=== PATIENT | female | born 1950 | race Caucasian/White ===

== ENCOUNTER 2019-03-22 08:43 | Day surgery (SDC) | payer MEDICARE, OTHER ==
[~2019-03-22] VITALS: Ht 160 cm; Wt 70.3 kg
[~2019-03-22 08:43] MED LIST: NS 1,000 ML IV ONE; PANT40TA3 PO
[2019-03-22] MEDS ORDERED: LIDOCAINE 2% INJ 100 MG/5 ML SDV (FOR ANES.) As Ordered ONE (09:03)
[2019-03-22] MEDS ORDERED: PROPOFOL 200 MG/20 ML VIAL As Ordered ONE (09:03)
[2019-03-22] MEDS ORDERED: PHENYLephrine HCL 500 MCG/5 ML (100MCG/ML) SYRINGE (J2370) As Ordered ONE (09:28)
--- NOTE | 2019-03-22 09:43 | ROOR ---
Patient Name: Kassi Garza Procedure Date: 03/22/2019 9:20 AM Date of : 1950 Age: 69 Room: [facility] Gender: Female Note Status: Finalized Procedure: Total Colonoscopy to Cecum + ileoscopy Indications: Colon cancer screening in patient at increased risk: Colorectal cancer in sister, Last colonoscopy: 2013 Providers: Aiden Mcdonnell MD Referring MD: Leticia Mike NP Requesting Provider: Medicines: Monitored Anesthesia Care Complications: No immediate complications. Procedure: Pre-Anesthesia Assessment: - The heart rate, respiratory rate, oxygen saturations, blood pressure, adequacy of pulmonary ventilation, and response to care were monitored throughout the procedure. The Colonoscope was introduced through the anus and advanced to the cecum, identified by appendiceal orifice and ileocecal valve. The colonoscopy was performed without difficulty. The patient tolerated the procedure well. The quality of the bowel preparation was excellent. Findings: The perianal and digital rectal examinations were normal. Non-bleeding internal hemorrhoids were found during retroflexion. The hemorrhoids were small and Grade I (internal hemorrhoids that do not prolapse). Multiple small and large-mouthed diverticula were found in the recto-sigmoid colon, sigmoid colon and descending colon. The exam was otherwise without abnormality on direct and retroflexion views. The terminal ileum appeared normal. Impression: - Non-bleeding internal hemorrhoids. - Diverticulosis in the recto-sigmoid colon, in the sigmoid colon and in the descending colon. - The examination was otherwise normal on direct and retroflexion views. - The examined portion of the ileum was normal. - No specimens collected. - The exam was otherwise normal to the cecum. Recommendation: - Patient has a contact number available for emergencies. The signs and symptoms of potential delayed complications were discussed with the patient. Return to normal activities tomorrow. Written discharge instructions were provided to the patient. - High fiber diet. - Discharge patient to home. - Continue present medications. - Repeat colonoscopy in 5 years for screening purposes. - Return to referring physician. - The findings and recommendations were discussed with the patient's family. Aiden Mcdonnell MD Aiden Mcdonnell MD 03/22/2019 9:43:40 AM Electronically signed by Aiden Mcdonnell MD Number of Addenda: 0 Note Initiated On: 03/22/2019 9:20 AM Estimated Blood Loss: Estimated blood loss: none.
[2019-03-22 10:08] VITALS: BP 119/61
== END 2019-03-22 10:20 | disposition home or self-care (01) ==
LOC: M OPP 08:43
PROVIDERS: ATTEND Internal Medicine Gastroenterology
DX: Z12.11 Encounter for screening for malignant neoplasm of colon (principal); Z80.0 Family history of malignant neoplasm of digestive organs; K64.0 First degree hemorrhoids; K57.30 Diverticulosis of large intestine without perforation or abscess without bleeding
CPT/HCPCS: G0105; J2370

== ENCOUNTER → 2020-01-25 | Outpatient (REF) | payer MEDICARE, OTHER ==
[~2020-01-25] MED LIST changes: -NS 1,000 ML IV ONE
== END ==
LOC: M SFHCPLAZ 16:45
PROVIDERS: ATTEND Internal Medicine Infectious Disease
DX: N39.0 Urinary tract infection, site not specified (principal)

== ENCOUNTER → 2021-05-27 | Outpatient (CLI) | payer MEDICARE, OTHER ==
[~2021-05-27] MED LIST changes: +PANT40TA29 PO; -PANT40TA3 PO
--- NOTE | 2021-05-27 12:12 | REP ---
INDICATION: MILD INTERMITTENT ASTHMA WITH (ACUTE) EXACERBATION. COMPARISON: None. TECHNIQUE: PA and lateral FINDINGS: Cardiomediastinal silhouette is within normal limits. Lung st appear clear. The pleural angles are sharp. The osseous structures are within normal limits for the patient's age. IMPRESSION: There is no acute cardiopulmonary disease. Since are no priors for comparison and considering the patient's history of intermittent reactive airway disease consider baseline CT of the chest if clinically relevant. <Electronically signed by Chang Jara > 05/27/21 [id number]
== END ==
LOC: M PLAIMG 09:31
PROVIDERS: ATTEND Internal Medicine Infectious Disease
DX: J45.21 Mild intermittent asthma with (acute) exacerbation (principal); Z23 Encounter for immunization
CPT/HCPCS: 71046; 90471; 90715; G0463